=== PATIENT | male | born 1945 ===

== ENCOUNTER → 2018-02-16 14:58 | Outpatient (CLI) | payer OTHER, SELFPAY ==
--- NOTE | 2018-02-16 15:01 | DI.RAD.S_ITS ---
PROCEDURE: XR ACUTE ABDOMEN SERIES INDICATIONS: abd pain TECHNIQUE: One view chest and two views of the abdomen were acquired. COMPARISON: [facility], CR, CHEST 2VW, 11/09/2012, 10:17. [facility], CT, CT ABD PELVIS W CON, 05/26/2016, 0:15. FINDINGS: Surgical changes and devices: None. Chest: There has been interval development of prominent perihilar interstitial markings, which are seen within the bilateral suprahilar regions, predominantly and oriented in a parallel configuration with respect to the spine. No lobar consolidation, effusion, or pneumothorax is evident. The heart is normal in size. Degenerative changes of the shoulders and spine are present. Abdomen: Multiple air filled bowel loops are identified within the upper abdomen with air-fluid levels which appears to represent the colon, which is markedly distended at approximately 8.8 cm in diameter. The distal colon is noted to be decompressed. The transition point is noted to be within the region of the splenic flexure. No definite dilated small bowel loops are evident. Moderate multilevel degenerative changes of the spine and sacroiliac joints are present. There also moderate degenerative changes of the bilateral hips. No definite pneumoperitoneum is evident. No evidence of organomegaly is identified. IMPRESSION: 1. Probable colonic obstruction with a transition at the splenic flexure. A CT of the abdomen and pelvis with oral and intravenous contrast is recommended for further evaluation. 2. Abnormal perihilar lung markings may be related to chronic interstitial changes from prior radiation therapy. If there is no history of prior radiation therapy, a contrast enhanced chest CT is recommended for further evaluation. Dictated by: Blair Tripp M.D. on 02/16/2018 at 14:20 Approved by: Blair Tripp M.D. on 02/16/2018 at 14:26
== END ==
PROVIDERS: Family Provider Family Medicine; PCP Family Medicine; Visit Provider Family Medicine
DX: R10.9 Unspecified abdominal pain (principal)
CPT/HCPCS: 74022